=== PATIENT | male | born 1990 | race Two or more races ===

== ENCOUNTER 2018-03-26 00:44 | Emergency (ER) | payer OTHER ==
[~2018-03-26] VITALS: Ht 175.3 cm; Wt 68.0 kg
[2018-03-26 01:09] VITALS: BP 130/76
[2018-03-26] MEDS ORDERED: ZYRTEC10 MG ORAL (01:33)
[2018-03-26] MEDS ORDERED: BENADRYL25 MG ORAL (01:33)
[2018-03-26] MEDS ORDERED: PREDNISONE20 MG ORAL (01:33)
[2018-03-26 01:59] VITALS: BP 128/78
--- NOTE | 2018-03-26 02:41 | Emergency Room Report ---
History of Present Illness General Chief Complaint: General Complaint Source: Patient Present Illness HPI Patient presents with reports of throat spasm Patient reports that he has been having this problem over the past several months he feels that when he coughs At times he feels increased spasming of his throat feels that his airways being blocked patient was given cough syrup by his primary physician He reports that recently after traveling to [place] he feels that some of his symptoms have worsened Patient reports that he had allergies and asthma as a child Denies any sore throat denies any itching in his throat patient had an episode earlier tonight where he felt that a coughing episode caused spasming of his airway He reports almost passing out paramedics were summoned patient reports that by the time they presented he was feeling better and therefore he presents in private auto Allergies: Coded Allergies: No Known Allergies (Unverified , 03/26/18) Patient History Past Medical History: see triage record Pertinent Family History: none Reviewed Nursing Documentation: PMH: Agreed; PSxH: Agreed Nursing Documentation-PMH Hx Asthma: Yes Hx Neurological Problems: Yes - Pneumothorax Review of Systems All Other Systems: negative except mentioned in HPI Physical Exam Vital Signs Date Time Temp Pulse Resp B/P (MAP) Pulse Ox O2 Delivery O2 Flow Rate FiO2 03/26/18 00:47 97.9 76 16 121/76 95 Room Air Sp02 EP Interpretation: reviewed, normal General Appearance: well appearing, no apparent distress Head: normocephalic, atraumatic Eyes: bilateral eye PERRL, bilateral eye EOMI ENT: hearing grossly normal, normal pharynx, TMs + canals normal, uvula midline Neck: full range of motion, supple, no meningismus, no bony tend Respiratory: lungs clear, normal breath sounds, no rhonchi, no respiratory distress, no retraction, no accessory muscle use Cardiovascular #1: normal peripheral pulses, regular rate, rhythm, no edema, no gallop, no JVD, no murmur Gastrointestinal: normal bowel sounds, non tender, soft, no mass, no organomegaly, non-distended, no guarding, no hernia, no pulsatile mass, no rebound Genitourinary: no CVA tenderness Musculoskeletal: normal inspection, back normal Neurologic: oriented x3, responsive, workforce management manager III-XII nml as tested, motor strength/ tone normal, sensory intact Psychiatric: mood/affect normal Skin: normal color, no rash, warm/dry, palpation normal Lymphatic: normal inspection, no adenopathy Medical Decision Making Diagnostic Impression: Primary Impression: cough ER Course Patient has a benign medical evaluation at this time Airway is patent there is no sign of any stridor Given the patient's spasm in question of possible underlying allergy he is provided with medications Patient remains hemodynamically stable and is otherwise appropriate for close primary care physician follow-up Last Vital Signs Date Time Temp Pulse Resp B/P (MAP) Pulse Ox O2 Delivery O2 Flow Rate FiO2 03/26/18 01:59 97.6 77 18 128/78 100 Room Air Status: unchanged Disposition: HOME, SELF-CARE Condition: Stable Scripts Prednisone* (PREDNISONE*) 20 Mg Tablet 20 MG ORAL BID, #10 TAB 0 Refills Prov: Ashley Hernandez DO 03/26/18 Cetirizine Hcl* (ZYRTEC*) 10 Mg Tablet 10 MG ORAL DAILY, #15 TAB 0 Refills Prov: Ashley Hernandez DO 03/26/18 Diphenhydramine Hcl* (BENADRYL*) 25 Mg Capsule 25 MG ORAL Q8HR PRN for Itching, #12 CAP Prov: Ashley Hernandez DO 03/26/18 Referrals: NOT CHOSEN IPA/MD,REFERRING (PCP) Patient Instructions: Cough, Adult, [id number] Additional Instructions: Patient is provided with the discharge instructions notified to follow up with primary doctor in the next 2-3 days otherwise return to the er with any worsening symptoms. Please note that this report is being documented using DRAGON technology. This can lead to erroneous entry secondary to incorrect interpretation by the dictating instrument. Ashley Hernandez DO Mar 26, 2018 02:41
== END 2018-03-26 02:01 | disposition home or self-care (01) ==
LOC: EMR 01:17
DX: R05 Cough (principal); J45.909 Unspecified asthma, uncomplicated
CPT/HCPCS: 99283